=== PATIENT | female | born 1955 | race African-American/Black ===

== ENCOUNTER 2016-03-13 08:44 | Emergency (ER) | payer SELFPAY ==
[~2016-03-13] VITALS: Ht 162.6 cm; Wt 68.0 kg
[~2016-03-13 08:44] MED LIST: AMIT50TA PO; AMLO10TA2 PO; ASPI-482 PO; BENZ100C PO; CARV3.12 PO; CIPR500T94 PO; GUAI5LIQ PO; HYDR-2666 PO; HYDR-971 PO; HYDR25TA9 PO; ISON300T3 PO; LISI-338 PO; Lisinopril PO; METR500T PO; OMEP20TA PO; PYRI50CA PO; SIMV20TA PO
[2016-03-13] MEDS ORDERED: BENZONATATE 100 MG CAPSULE. PO ONE (09:15)
--- NOTE | 2016-03-13 09:26 | RAD ---
Chest, 2 views, 03/13/2016: History: Cough, left-sided chest pain Comparison is made to a study from 03/01/2016. The heart size and pulmonary vascularity are normal. No pulmonary infiltrates are seen. There is no evidence of pleural fluid or pneumothorax. IMPRESSION: No acute cardiopulmonary abnormality is detected.
--- NOTE | 2016-03-13 09:38 | ED.ADGEN ---
Past Medical History Past Medical History: Arthritis, GERD, Hypertension, Other Additional Past Medical Histor: pancreatic tumor; bursitis; smokes crack Past Surgical History: Hysterectomy, Tonsillectomy, Other Additional Past Surgical Histo: tumor removal; left knee Alcohol Use: None Drug Use: Cocaine, Other Social History Narrative: smokes crack cocaine Adult General Chief Complaint Chief Complaint: COUGH HPI HPI Patient is a 61 year old woman, history of hypertension, arthritis, GERD, cocaine abuse, who presents to the emergency department with complaint of anterior chest wall pain, which is developed after coughing, and is worse with cough and with motion. States the chest pain began this morning although she has been coughing over the past several days. Chest pain without coughing, that she is having no shortness of breath, states the cough is productive of clear sputum. Patient states that the pain is experiencing is similar to the pain that brought her to the ED earlier this month. Patient was admitted on March 01 of this year and evaluated for chest pain, was determined to be experiencing a viral illness, at that time was discharged with cough syrup and blood pressure medications. No fevers or chills, no weakness numbness or tingling, no headache, no sore throat, has been experiencing mild nasal congestion. Patient states that she's been taking her blood pressure medication as directed, but did run out of her cough syrup, and would like a refill at this time. She denies any swelling extremities, any new sick contacts or exposures, any travel or surgery, any GI or complaints, any other musculoskeletal complaints. History of cocaine use, denies any recent drug use. States that she has been attempting to quit smoking, and has decreased her cigarette intake. Patient has not taken any medications for her symptoms for the past 12 hours. Review of Systems Review of Systems Constitutional: Denies fever or chills. [] Eyes: Denies change in visual acuity. [] HENT: Denies nasal congestion or sore throat. [] Respiratory: Cough productive of clear sputum, no shortness of breath. Cardiovascular: Anterior chest pain with coughing, no edema. GI: Denies abdominal pain, nausea, vomiting, bloody stools or diarrhea. [] : Denies dysuria. [] Musculoskeletal: Denies back pain or joint pain. [] Integument: Denies rash. [] Neurologic: Denies headache, focal weakness or sensory changes. [] Endocrine: Denies polyuria or polydipsia. [] Lymphatic: Denies swollen glands. [] Psychiatric: Denies depression or anxiety. [] Current Medications Current Medications Current Medications Medications (Trade) Dose Ordered Sig/Celsa Start Time Stop Time Status Last Admin Dose Admin Benzonatate (Tessalon Perle) 100 mg 1X ONCE 03/13/16 09:15 03/13/16 09:16 DC 03/13/16 09:28 100 MG Allergies Allergies Allergies Coded Allergies Type Severity Reaction Last Updated Verified Sulfa (Sulfonamide Antibiotics) Allergy Intermediate Hives 09/21/13 Yes Physical Exam Physical Exam Constitutional: Well developed, well nourished, no acute distress, non-toxic appearance. [] HENT: Normocephalic, atraumatic, bilateral external ears normal, oropharynx moist, no oral exudates, mildly injected oropharynx, no exudates identified, mild turbinate swelling with clear rhinorrhea. Eyes: PERRLA, EOMI, conjunctiva normal, no discharge. [] Neck: Normal range of motion, no tenderness, supple, no stridor. [] Cardiovascular:Heart rate regular rhythm, no murmur , S1, S2, rubs or gallops. [ ] Lungs & Thorax: Bilateral breath sounds clear to auscultation , no wheezing, rhonchi, rales. Patient with anterior chest wall tenderness with palpation, no crepitus, palpation reproduces symptoms. [] Abdomen: Bowel sounds normal, soft, no tenderness, no masses, no rebound, rigidity, no guarding, no pulsatile masses. [] Skin: Warm, dry, no erythema, no rash. [] Back: No tenderness, no CVA tenderness. [] Extremities: No tenderness, no cyanosis, no clubbing, ROM intact, no edema. Negative Homans sign. [] Neurologic: Alert and oriented X 3, normal motor function, normal sensory function, no focal deficits noted. [] Psychologic: Affect normal, judgement normal, mood normal. [] Current Patient Data Vital Signs Vital Signs Date Time Temp Pulse Resp B/P Pulse Ox O2 Delivery O2 Flow Rate FiO2 03/13/16 08:52 98.3 75 20 152/97 97 Room Air 98.3 Lab Values Laboratory Tests Test 03/13/16 09:00 Influenza Type A Antigen Negative (NEGATIVE) Influenza Type B Antigen Negative (NEGATIVE) EKG EKG EC: Sinus rhythm, heart rate 64 bpm, left axis deviation, QTC of 406, ND 152, QRS of 94, mild baseline artifact noted in the anterior lateral leads, with T-wave inversions in V3 through the 5, no ST elevations or depressions, abnormal ECG, does not meet STEMI criteria. As interpreted by me. [] Radiology/Procedures Radiology/Procedures [] [facility] [address] [place] [address] IMAGING REPORT Signed PATIENT: NALLELY SARGENT ACCOUNT: [id number] : 1955 LOCATION: ER AGE: 61 SEX: F EXAM STATUS: PRE ER ORD. PHYSICIAN: YADIRA ESPINAL DO REASON: Cough PROCEDURE: CHEST PA & LATERAL Chest, 2 views, 03/13/2016: History: Cough, left-sided chest pain Comparison is made to a study from 03/01/2016. The heart size and pulmonary vascularity are normal. No pulmonary infiltrates are seen. There is no evidence of pleural fluid or pneumothorax. IMPRESSION: No acute cardiopulmonary abnormality is detected. DICTATED and SIGNED BY: TARAN BOWLING MD DATE: 03/13/16922 CC: YADIRA ESPINAL DO; NO PCP ~ Course & Med Decision Making Course & Med Decision Making Pertinent Labs and Imaging studies reviewed. (See chart for details) Patient afebrile without antipyretics in the emergency department, oxygen saturation is 97-100% on room air, respiratory rate is 20 and unlabored. Mild nasal congestion, oropharynx mildly injected but no exudates, mild post nasal drip noted. No concerning lower airspace disease on examination, chest x-ray obtained to rule out any occult disease, was unremarkable. Discussed with patient that she is experiencing recurrent viral upper respiratory illness, instructed to continue supportive care, myalgias are consistent with infection and persistent cough. Patient received Tessalon Perles for her cough in the ED, discussed that we will not refill the guaifenesin with codeine at this time, instructed to continue using the Tessalon Perles and other [id number] medications along with her prescription blood pressure medication as directed by her primary care provider. We did discuss concerning symptoms that prompt return, patient discharged home in stable condition with plan follow up with her PCP, and to return to the ED for concerning symptoms as discussed. Dragon Disclaimer Dragon Disclaimer This electronic medical record was generated, in whole or in part, using a voice recognition dictation system. Departure Impression: Primary Impression: Upper respiratory infection Disposition: HOME, SELF-CARE Condition: IMPROVED Scripts Benzonatate (Tessalon Perle)100 Mg Capsule1 Cap PO TID PRN COUGH #21 CAP Prov:YADIRA ESPINAL DO 03/13/16 Problem Qualifiers Primary Impression: Upper respiratory infection URI type: unspecified viral URI Qualified Code: J06.9 - Acute upper respiratory infection, unspecified YADIRA ESPINAL DO Mar 13, 2016 09:38
[2016-03-13 09:43] LABS: OBC FLU VALID
[2016-03-13] MEDS ORDERED: BENZ100C PO (09:48)
[2016-03-13 09:55] VITALS: BP 155/76
--- NOTE | 2016-03-14 06:36 | EKG ---
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
== END 2016-03-13 09:55 | disposition home or self-care (01) ==
LOC: ER 08:44
DX: J06.9 Acute upper respiratory infection, unspecified (principal); I10 Essential (primary) hypertension; K21.9 Gastro-esophageal reflux disease without esophagitis; M19.90 Unspecified osteoarthritis, unspecified site; F17.210 Nicotine dependence, cigarettes, uncomplicated; F14.10 Cocaine abuse, uncomplicated; Z88.2 Allergy status to sulfonamides; Z90.89 Acquired absence of other organs
CPT/HCPCS: 71020; 87804; 93005; 99285-25

== ENCOUNTER 2016-06-14 02:52 | Emergency (ER) | payer OTHER ==
[~2016-06-14] VITALS: Ht 162.6 cm; Wt 61.2 kg
[2016-06-14 02:52] VITALS: BP 154/105
--- NOTE | 2016-06-14 03:15 | PHYS DOC ---
Past Medical History Past Medical History: Arthritis, GERD, Hypertension, Other Additional Past Medical Histor: pancreatic tumor; bursitis Past Surgical History: Hysterectomy, Tonsillectomy, Other Additional Past Surgical Histo: tumor removal; left knee Alcohol Use: None Drug Use: Cocaine, Other Social History Narrative: pt states she is currently sober Adult General Chief Complaint Chief Complaint: NOSEBLEED HPI HPI Patient is a 61 year old female who presents by EMS for right sided nose bleed intermittently over the past few days. Denies nasal trauma, rhinorrhea, nasal congestion, drug use. Also notes some anxiety about recent psychosocial stressors. Denies suicidal ideation, homicidal ideation, hallucinations. Review of Systems Review of Systems Constitutional: Denies fever or chills [] Eyes: Denies change in visual acuity, redness, or eye pain [] HENT: Denies nasal congestion or sore throat [] Respiratory: Denies cough or shortness of breath [] Cardiovascular: No additional information not addressed in HPI [] GI: Denies abdominal pain, nausea, vomiting, bloody stools or diarrhea [] : Denies dysuria or hematuria [] Musculoskeletal: Denies back pain or joint pain [] Integument: Denies rash or skin lesions [] Neurologic: Denies headache, focal weakness or sensory changes [] Endocrine: Denies polyuria or polydipsia [] Allergies Allergies Allergies Coded Allergies Type Severity Reaction Last Updated Verified Sulfa (Sulfonamide Antibiotics) Allergy Intermediate Hives 09/21/13 Yes Physical Exam Physical Exam Constitutional: Well developed, well nourished, no acute distress, non-toxic appearance. [] HENT: Normocephalic, atraumatic, bilateral external ears normal, oropharynx moist, no oral exudates. Left nose normal, Right anterior venous plexus blood clot with no active bleeding. [] Eyes: PERRLA, EOMI. [] Neck: Normal range of motion, supple. [] Cardiovascular:Heart rate regular rhythm [] Lungs & Thorax: Bilateral breath sounds clear to auscultation [] Abdomen: Bowel sounds normal, soft, no tenderness. [] Skin: Warm, dry, no erythema, no rash. [] Back: Normal range of motion. [] Extremities: No tenderness, ROM intact. [] Neurologic: Alert and oriented X 3, normal motor function, normal sensory function, no focal deficits noted. [] Psychologic: Affect normal, judgement normal, mood normal. [] Current Patient Data Vital Signs Vital Signs Date Time Temp Pulse Resp B/P Pulse Ox O2 Delivery O2 Flow Rate FiO2 06/14/16 02:52 97.6 96 16 154/105 97 Room Air 97.6 Course & Med Decision Making Course & Med Decision Making No active nosebleed at this time. Discussed home management of nosebleeds. Encouraged follow-up with primary care. Return precautions given. She understands and agrees with plan. Dragon Disclaimer Dragon Disclaimer This electronic medical record was generated, in whole or in part, using a voice recognition dictation system. Departure Departure Impression: Primary Impression: Epistaxis Additional Impression: Situational anxiety Disposition: 01 HOME, SELF-CARE Condition: STABLE Referrals: NO PCP (PCP) Patient Instructions: Nosebleed, [id number] Additional Instructions: Follow-up with your primary care doctor. Return for any concerns. Problem Qualifiers Spencer MCKEON MD Jun 14, 2016 03:15
== END 2016-06-14 03:25 | disposition home or self-care (01) ==
LOC: ER 02:52
DX: R04.0 Epistaxis (principal); F41.8 Other specified anxiety disorders; M19.90 Unspecified osteoarthritis, unspecified site; K21.9 Gastro-esophageal reflux disease without esophagitis; I10 Essential (primary) hypertension; F14.10 Cocaine abuse, uncomplicated; Z88.2 Allergy status to sulfonamides
CPT/HCPCS: 99283; 99284

== ENCOUNTER → 2017-11-07 | Outpatient (CLI) | payer OTHER ==
[~2017-11-07] MED LIST changes: -AMLO10TA2 PO; +AMLO10TA6 PO; -HYDR-2666 PO; +HYDR-2758 PO; -OMEP20TA PO; +OMEP20TA8 PO
--- NOTE | 2017-11-07 14:43 | RAD ---
DATE: November 07, 2017 EXAM: DIGITAL SCREEN BILAT W/CAD HISTORY: Screening baseline study COMPARISON: None. Baseline study. This study was interpreted with the benefit of Computerized Aided Detection (CAD). FINDINGS: Breast Density: HETERO The breast parenchyma is heterogenously dense, which could reduce sensitivity of mammography. Breast parenchyma level C.. No clustering of pleomorphic microcalcifications or architectural distortion is seen on either side. However, there is a small nodule present within the lateral aspect of the right breast at the 9:00 position. Recommend focal compression views and 90 degrees mediolateral view of the right breast followed by right breast sonography if it persists. IMPRESSION: Nodule of the right breast. Additional imaging is needed. BI-RADS CATEGORY: 0 INCOMPLETE: NEEDS ADDITIONAL IMAGING EVALUATION AND/OR PRIOR MAMMOGRAMS FOR COMPARISON. RECOMMENDED FOLLOW-UP: ADD ADDITIONAL IMAGING PQRS compliance statement: Patient information was entered into a reminder system with a target due date of now for the next imaging study. Mammography is a sensitive method for finding small breast cancers, but it does not detect them all and is not a substitute for careful clinical examination. A negative mammogram does not negate a clinically suspicious finding and should not result in delay in biopsying a clinically suspicious abnormality. "Our facility is accredited by the [employer] Mammography [employer]." The patient's breast density may affect the ability of mammography to detect breast cancer. There are 4 categories of breast density, A, B, C and D. Breast density A means that most of the breast tissue is replaced with adipose tissue and therefore is not dense. Breast density B means that the breast tissue is mildly dense and scattered. Breast density C means that the breast tissue is heterogeneously dense. Breast density D means that the breast tissue is very dense. Breast densities especially C and D may decrease the sensitivity of mammography to detect breast cancer. Therefore, the patient may benefit from 3-D breast mammography (3D breast tomography) as a part of their screening mammogram. Insurance may or may not pay for this additional imaging. The patient's breast density based on today's mammogram is category C.
== END | disposition home or self-care (01) ==
LOC: MAMMO 10:49
PROVIDERS: ATTEND Family Medicine
DX: Z12.31 Encounter for screening mammogram for malignant neoplasm of breast (principal); N63.13 Unspecified lump in the right breast, lower outer quadrant; I10 Essential (primary) hypertension; E78.5 Hyperlipidemia, unspecified; J44.9 Chronic obstructive pulmonary disease, unspecified; M19.90 Unspecified osteoarthritis, unspecified site; K21.9 Gastro-esophageal reflux disease without esophagitis; Z86.11 Personal history of tuberculosis; Z90.49 Acquired absence of other specified parts of digestive tract; Z85.00 Personal history of malignant neoplasm of unspecified digestive organ; Z90.710 Acquired absence of both cervix and uterus; Z88.2 Allergy status to sulfonamides; Z82.49 Family history of ischemic heart disease and other diseases of the circulatory system; Z82.3 Family history of stroke
CPT/HCPCS: 77067

== ENCOUNTER → 2017-11-07 | Outpatient (CLI) | payer OTHER ==
[2017-11-07 11:08] LABS: BASO % 1 % (0-3); EOS # 0.1 x10^3/uL (0.0-0.7); EOS % 3 % (0-3); HEMATOCRIT 41.1 % (36.0-47.0); HEMOGLOBIN 13.5 g/dL (12.0-15.5); LYMPH % 43 % (24-48); MEAN CORPUSCULAR HEMOGLOBIN 30 pg (25-35); MEAN CORPUSCULAR HGB CONC 33 g/dL (31-37); MEAN CORPUSCULAR VOLUME 91 fL (79-100); MONO # 0.3 x10^3/uL (0.0-1.1); MONO % 7 % (0-9); NEUT # 2.1 x10^3uL (1.8-7.7); NEUT % 46 % (31-73); PLATELET COUNT 160 x10^3/uL (140-400); RED BLOOD COUNT 4.54 x10^6/uL (3.50-5.40); RED CELL DISTRIBUTION WIDTH 15.5 % (11.5-14.5); WHITE BLOOD COUNT 4.6 x10^3/uL (4.0-11.0)
[2017-11-07 11:28] LABS: CALCIUM 8.7 mg/dL (8.5-10.1); GFR 67.8; MAGNESIUM 2.2 mg/dL (1.8-2.4)
== END | disposition home or self-care (01) ==
LOC: LAB 10:39
PROVIDERS: ATTEND Internal Medicine Cardiovascular Disease
DX: I42.9 Cardiomyopathy, unspecified (principal); I11.0 Hypertensive heart disease with heart failure; I50.9 Heart failure, unspecified; F03.90 Unspecified dementia, unspecified severity, without behavioral disturbance, psychotic disturbance, mood disturbance, and anxiety; J44.9 Chronic obstructive pulmonary disease, unspecified; J44.0 Chronic obstructive pulmonary disease with (acute) lower respiratory infection; K21.9 Gastro-esophageal reflux disease without esophagitis; Z85.09 Personal history of malignant neoplasm of other digestive organs; Z90.49 Acquired absence of other specified parts of digestive tract; Z86.2 Personal history of diseases of the blood and blood-forming organs and certain disorders involving the immune mechanism; Z90.710 Acquired absence of both cervix and uterus; Z88.2 Allergy status to sulfonamides; Z82.49 Family history of ischemic heart disease and other diseases of the circulatory system; Z82.3 Family history of stroke
CPT/HCPCS: 36415; 80048; 83735; 84443; 85025

== ENCOUNTER → 2017-11-28 | Outpatient (CLI) | payer OTHER ==
--- NOTE | 2017-11-28 15:01 | CARD ---
MR#: [id number] Date of Study: 11/28/2017 Ordering Physician: DANNI BEASLEY, Referring Physician: DANNI BEASLEY, Tech: Annie Freeman RDCS APPROVED REPORT EXAM: Two-dimensional and M-mode echocardiogram with Doppler and color Doppler. Other Information Quality : Good INDICATION Non-Ischemic Cardiomyopathy 2D DIMENSIONS RVDd2.8 (2.9-3.5cm)Left Atrium(2D)4.1 (1.6-4.0cm) IVSd0.8 (0.7-1.1cm)Aortic Root(2D)2.7 (2.0-3.7cm) LVDd6.9 (3.9-5.9cm)LVOT Diameter1.9 (1.8-2.4cm) PWd1.0 (0.7-1.1cm)LVDs6.0 (2.5-4.0cm) FS (%) 12.8 %SV65.9 ml M-Mode DIMENSIONS LVDd7.00 (4.0-5.6cm)FS (%) 10 % LVDs6.29 (2.0-3.8cm)LVEF(%)22 (>50%) Aortic Valve AoV Peak Evgeny.135.7cm/sAoV VTI21.8cm AO Peak GR.7.4mmHgLVOT Peak Evgeny.105.8cm/s LVOT VTI 16.67cmAO Mean GR.4mmHg SARAHI (VMAX)2.28sh3SKE (VTI)2.28cm2 Mitral Valve MV E Gvpkvycp067.1cm/sMV E Peak Gr.133mmHg MV DECEL [id number] A Fyndsmuy18.0cm/s MV IJD01qyL/A Ratio1.2 MVA (PHT)4.58cm2 TDI E/Lateral E'38.8E/Medial E'18.4 Tricuspid Valve TR P. Vfuubpgy127rj/sRAP EZCIPVYE5jkPj TR Peak Gr.74uqTvCLLB62pdZx Pulmonary Vein S1 Odwhofps82.6cm/sD2 Zqtrdktr60.0cm/s LEFT VENTRICLE The Left Ventricle is moderately dilated. There is normal left ventricular wall thickness. Left ventr icle systolic function is severely impaired. The Ejection Fraction is estimated at 15%. There is denisse re global hypokinesis of the left ventricle. Transmitral Doppler flow pattern is Grade II-pseudonorma l filling dynamics. RIGHT VENTRICLE The right ventricle is normal size. The right ventricular systolic function is normal. ATRIA The left atrium is mildly dilated. The right atrium size is normal. The interatrial septum is intact with no evidence for an atrial septal defect or patent foramen ovale as noted on 2-D or Doppler imagi ng. AORTIC VALVE The aortic valve is calcified but opens well. Doppler and Color Flow revealed no significant aortic r egurgitation. There is no significant aortic valvular stenosis. MITRAL VALVE The mitral valve is normal in structure. There is no evidence of mitral valve prolapse. There is no m itral valve stenosis. Doppler and Color-flow revealed moderate to moderately severe mitral regurgitat ion. TRICUSPID VALVE The tricuspid valve is normal in structure and function. Doppler and Color Flow revealed mild tricusp id regurgitation. The PA pressure was estimated at 40 mmHg. There is no tricuspid valve stenosis. PULMONIC VALVE The pulmonary valve is normal in structure and function. Doppler and Color Flow revealed trace pulmon ic valvular regurgitation. There is no pulmonic valvular stenosis. GREAT VESSELS The aortic root is normal in size. The ascending aorta is normal in size. The IVC is normal in size a nd collapses >50% with inspiration. PERICARDIAL EFFUSION There is no evidence of significant pericardial effusion. Critical Notification Critical Value: No <Conclusion> The Left Ventricle is moderately dilated. Left ventricle systolic function is severely impaired. The Ejection Fraction is estimated at 15%. There is severe global hypokinesis of the left ventricle. There is no significant aortic valvular stenosis. Doppler and Color Flow revealed no significant aortic regurgitation. Doppler and Color-flow revealed moderate to moderately severe mitral regurgitation. Doppler and Color Flow revealed mild tricuspid regurgitation. The PA pressure was estimated at 40 mmHg. Signed by : Danni Beasley MD Electronically Approved : 11/28/2017 15:00:47
== END | disposition home or self-care (01) ==
LOC: ECHO 10:19
PROVIDERS: ATTEND Internal Medicine Cardiovascular Disease
DX: I08.1 Rheumatic disorders of both mitral and tricuspid valves (principal); I42.8 Other cardiomyopathies
CPT/HCPCS: 93306

== ENCOUNTER → 2017-11-28 | Outpatient (CLI) | payer OTHER ==
--- NOTE | 2017-11-28 11:41 | RAD ---
DATE: 11/28/2017 EXAM: MAMMO BC DIAG RT HISTORY: Suspicious screening study COMPARISON: 11/07/2017 This study was interpreted with the benefit of Computerized Aided Detection (CAD). Breast Density: HETERO The breast parenchyma is heterogenously dense, which could reduce sensitivity of mammography. Breast parenchyma level C. FINDINGS: Additional spot compression, straight mediolateral and CC tomosynthesis imaging of the right breast was performed and correlated with the screening images. The nodularity seen laterally in the right breast on the screening images cannot be reproduced and was presumably a summation shadow. No suspicious breast densities are seen on the CC tomosynthesis images. IMPRESSION: There is no mammographic evidence of malignancy in the right breast. BI-RADS CATEGORY: 2 BENIGN FINDING(S) RECOMMENDED FOLLOW-UP: 12M 12 MONTH FOLLOW-UP PQRS compliance statement: Patient information was entered into a reminder system with a target due date for the next mammogram. Mammography is a sensitive method for finding small breast cancers, but it does not detect them all and is not a substitute for careful clinical examination. A negative mammogram does not negate a clinically suspicious finding and should not result in delay in biopsying a clinically suspicious abnormality. "Our facility is accredited by the [employer] Mammography Program."
== END | disposition home or self-care (01) ==
LOC: MAMMO 10:42
PROVIDERS: ATTEND Family Medicine
DX: R92.8 Other abnormal and inconclusive findings on diagnostic imaging of breast (principal); E78.00 Pure hypercholesterolemia, unspecified; I10 Essential (primary) hypertension; K21.9 Gastro-esophageal reflux disease without esophagitis
CPT/HCPCS: 77065; G0279; 77061

== ENCOUNTER 2018-01-29 00:47 | Emergency (ER) | payer OTHER ==
[~2018-01-29] VITALS: Ht 162.6 cm; Wt 54.4 kg
[2018-01-29 00:47] VITALS: BP 117/77
[~2018-01-29 00:47] MED LIST changes: +HYDR-2145 PO; -HYDR-2758 PO; +HYDR-2761 PO; +HYDR-3164 PO; -HYDR-971 PO; -HYDR25TA9 PO; -ISON300T3 PO; +ISON300T9 PO
[2018-01-29] MEDS: DEXAMETHASONE SOD PHOS 20 MG/5 ML VIAL. IM ONE (01:22)
[2018-01-29] MEDS: CEPHALEXIN 250 MG CAPSULE. PO ONE (01:22)
[2018-01-29] MEDS ORDERED: CEPH-264 PO (01:27)
[2018-01-29] MEDS ORDERED: METH4TAB2 PO (01:27)
--- NOTE | 2018-01-29 01:27 | PHYS DOC ---
Past Medical History Past Medical History: Arthritis, CHF, GERD, Hypertension, Other Additional Past Medical Histor: pancreatic tumor; bursitis, BRADYCARDIA Past Surgical History: Hysterectomy, Tonsillectomy, Other Additional Past Surgical Histo: tumor removal; left knee Alcohol Use: None Drug Use: Cocaine, Other Adult General Chief Complaint Chief Complaint: SKIN RASH/ABSCESS [facility] HPI Patient is a 62-year-old female who presents with complaint of rash around her neck as well as extending into her posterior scalp. She states that it itches a lot and states that she thinks that she is spreading by scratching. She denies any fever. Patient does not think that she has come in contact with any poison oak or poison lamin. She states that the symptoms are worsened with scratching in that it seems like it is spreading. Review of Systems Review of Systems Constitutional: Denies fever or chills [] Respiratory: Denies cough or shortness of breath [] Cardiovascular: No additional information not addressed in HPI [] Integument: Complains of rash and pruritus[] Current Medications Current Medications Current Medications Medications (Trade) Dose Ordered Sig/Celsa Start Time Stop Time Status Last Admin Dose Admin Cephalexin HCl (Keflex) 500 mg 1X ONCE 01/29/18 01:30 12 01:31 DC 01/29/18 01:22 500 MG Dexamethasone Sodium Phosphate (Decadron) 10 mg 1X ONCE 01/29/18 01:30 01/29/18 01:31 DC 01/29/18 01:22 10 MG Allergies Allergies Allergies Coded Allergies Type Severity Reaction Last Updated Verified Sulfa (Sulfonamide Antibiotics) Allergy Intermediate Hives 09/21/13 Yes Physical Exam Physical Exam Constitutional: Well developed, well nourished, no acute distress, non-toxic appearance. [] HENT: Normocephalic, atraumatic, bilateral external ears normal, oropharynx moist, no oral exudates, nose normal. [] Neck: Normal range of motion, no tenderness, supple. [] Cardiovascular:Heart rate regular rhythm, no murmur [] Lungs & Thorax: Bilateral breath sounds clear to auscultation [] Skin: Warm, dry. There is a raised, papular rash with some erythema primarily around the neck on the left, right and posterior aspects. [] Extremities: No tenderness, no cyanosis, no clubbing, ROM intact, no edema. [] Current Patient Data Vital Signs Vital Signs Date Time Temp Pulse Resp B/P (MAP) Pulse Ox O2 Delivery O2 Flow Rate FiO2 01/29/18 00:47 98.5 99 20 96 Room Air 98.5 EKG EKG [] Radiology/Procedures Radiology/Procedures [] Course & Med Decision Making Course & Med Decision Making Pertinent Labs and Imaging studies reviewed. (See chart for details) [] Dragon Disclaimer Dragon Disclaimer This electronic medical record was generated, in whole or in part, using a voice recognition dictation system. Departure Departure Impression: Primary Impression: Dermatitis Disposition: HOME, SELF-CARE Condition: STABLE Referrals: DIANE MORLEY MD (PCP) Patient Instructions: Contact Dermatitis Scripts Methylprednisolone (MEDROL) 4 Mg Tab.ds.pk 1 PKG PO UD, #1 PKG Prov: REGAN MEIER Jr. DO 01/29/18 Cephalexin (KEFLEX) 500 Mg Capsule 1 CAP PO TID, #30 CAP Prov: REGAN MEIER Jr. DO 01/29/18 REGAN MEIER Jr. DO Jan 29, 2018 01:27
== END 2018-01-29 01:42 | disposition home or self-care (01) ==
LOC: ER 00:47
DX: L30.9 Dermatitis, unspecified (principal); M19.90 Unspecified osteoarthritis, unspecified site; I11.0 Hypertensive heart disease with heart failure; I50.9 Heart failure, unspecified; K21.9 Gastro-esophageal reflux disease without esophagitis; Z88.2 Allergy status to sulfonamides
CPT/HCPCS: 96372; 99283; J1100